=== PATIENT | female | born 1985 | race Caucasian/White ===

== ENCOUNTER → 2023-11-19 08:01 | Outpatient (REF) | payer BC, SELFPAY | LOC: WOUND 08:01 | PROVIDERS: ATTENDING PHYSICIAN Surgery; REFERRING PHYSICIAN Nurse Practitioner | DX: S61.001A Unspecified open wound of right thumb without damage to nail, initial encounter (principal); E10.9 Type 1 diabetes mellitus without complications; Z79.4 Long term (current) use of insulin; X58.XXXA Exposure to other specified factors, initial encounter | CPT/HCPCS: 11042; 99203 ==

== ENCOUNTER → 2023-11-26 09:14 | Outpatient (REF) | payer BC, SELFPAY | LOC: WOUND 09:14 | PROVIDERS: ATTENDING PHYSICIAN Surgery; REFERRING PHYSICIAN Nurse Practitioner | DX: S61.001A Unspecified open wound of right thumb without damage to nail, initial encounter (principal); E10.9 Type 1 diabetes mellitus without complications; Z79.4 Long term (current) use of insulin; X58.XXXA Exposure to other specified factors, initial encounter | CPT/HCPCS: 97597 ==

== ENCOUNTER → 2023-12-03 08:49 | Outpatient (REF) | payer BC, SELFPAY | LOC: WOUND 08:49 | PROVIDERS: ATTENDING PHYSICIAN Surgery; FAMILY PHYSICIAN Nurse Practitioner | DX: E10.9 Type 1 diabetes mellitus without complications (principal); S61.001A Unspecified open wound of right thumb without damage to nail, initial encounter; Z79.4 Long term (current) use of insulin; X58.XXXA Exposure to other specified factors, initial encounter | CPT/HCPCS: 99212 ==

== ENCOUNTER → 2024-04-08 14:51 | Outpatient (REF) | payer BC, SELFPAY | LOC: HWRAD 14:51 | PROVIDERS: ATTENDING PHYSICIAN Nurse Practitioner Obstetrics & Gynecology; FAMILY PHYSICIAN Family Medicine | DX: N92.6 Irregular menstruation, unspecified (principal); R10.2 Pelvic and perineal pain | CPT/HCPCS: 76830; 76856 ==

== ENCOUNTER 2024-05-22 07:03 | Emergency (ER) | payer BC, SELFPAY ==
[2024-05-22 07:05] VITALS: BP 154/99
--- NOTE | 2024-05-22 07:26 | ED.GENMED ---
History of Present Illness
General
Chief Complaint: Post Operative Problem(s)
Time Seen by Provider: 05/22/24 07:11
History of Present Illness
History of Present Illness:
39 yo female w/ hx of IDDM presents to the Emergency Department for evaluation of multiple complaints. She is 2d s/p L ovarian cystectomy performed at [facility]. States she awoke today with vaginal bleeding and clots, as well as scant bleeding from
the R sided laparoscopic incision. She is also concerned for subjective weakness of the RUE. No fevers or chills. Denies dysuria or urinary retention. + nausea.
Past History
Past History
ED Past Medical History: IDDM
ED Past Surgical History: None
Social History
Tobacco: Non-smoker
Alcohol: None
Drug: None
Personal:
Living: with family
Employment: Employed
Review of Systems
Review of Systems
Allergies reviewed?: Yes
All Other Systems: ROS reviewed and negative except as documented in HPI and ROS
Phy Exam
Physical Exam
Physical Exam:
GEN: Well appearing, NAD, WDWN
HEENT: Oral mucosa moist, no scleral icterus
Cardiac: Regular rate and rhythm, no murmurs
Lung: No respiratory distress, no tachypnea
Abdomen: Laparoscopic incisional sites are clean dry and intact with the exception of the right incision where there is a pinhole sized opening in the skin glue with scant bleeding, no firmness or induration. Abdomen is grossly soft and nontender.
MSK: No gross deformity or injuries
Skin: Good color, no pallor or jaundice, no rashes
Neuro: AO x3, moves all extremities freely. Bilateral upper extremity strength and sensation is intact in all seaman and symmetric
Psych: Calm, cooperative
Course
Orders/Labs/Results
Orders:
Orders
05/22/24 07:28
0.9% Sodium Chloride 1000 ml [Nss] 1,000 ml IV BOLUS
Ondansetron Injectable [Zofran] 4 mg IV NOW STA
05/22/24 07:38
Complete Blood Count/With Diff Urgent
Comprehensive Metabolic Panel Urgent
Abnormal Lab Results
05/22/24
07:38
WBC 12.6 H 10^3/uL
(4.8-10.8)
MPV 10.7 H fL
(7.4-10.4)
Absolute Neuts (auto) 8.0 H 10^3/uL
(1.4-6.5)
Absolute Lymphs (auto) 3.6 H 10^3/uL
(1.2-3.4)
Absolute Monos (auto) 0.8 H 10^3/uL
(0.1-0.6)
Chloride 109 H mmol/L
(98-107)
BUN 4 L mg/dl
(7-17)
Glucose 190 H mg/dl
(70-99)
Total Protein 6.2 L g/dl
(6.3-8.2)
05/22/24 07:38
05/22/24 07:38
Vital Signs
Initial and Last Documented VS:
Initial Vital Signs
Temp Pulse Resp BP Pulse Ox
98.4 F 99 16 154/99 99
05/22/24 07:05 05/22/24 07:05 05/22/24 07:05 05/22/24 07:05 05/22/24 07:05
Last Documented Vital Signs
Temp Pulse Resp BP Pulse Ox
98.4 F 99 16 125/74 97
05/22/24 07:05 05/22/24 07:05 05/22/24 07:05 05/22/24 09:00 05/22/24 09:15
MDM/Problems Addressed
MDM/Problems Addressed:
Bleeding from the right laparoscopic incision site is quite minor and after hemostasis glue was applied for further hemostatic purposes. Vaginal bleeding is expected in the postoperative course given uterine manipulation required during surgery.
Her left arm symptoms are more likely on the basis of surgical positioning as there is no objective neurologic deficit on exam. I discussed the case with the patient's SR. [employer]GER [employer] surgeon at [facility] who is reassured by her findings. Patient be discharged
home and recommended to follow-up as an outpatient with [employer]
*Critical Care Note
Total Time (30-74mins, 75-104mins- exclusive of procedures): Not Applicable
ED Attending Note
-
Portions of this chart may have been created with voice recognition software.� Occasional wrong word or��sound alike� substitutions may have occurred due to the inherent limitations of voice recognition software.
Discharge Plan
Departure
Patient Disposition: Home (Routine Discharge)
Date of Disposition: 05/22/24
Time of Disposition: 09:01
Patient with high blood pressure during this ER visit?: No
Discharge Problem:
Postoperative vaginal bleeding
Instructions: Bleeding After Surgery
Prescriptions:
No Action
insulin glargine [Lantus U-100 Insulin] 100 UNITS/1 ML solution
17 units SC HS
insulin aspart U-100 [Novolog FlexPen U-100 Insulin] 300 UNITS/3 ML insulin pen
0 units SC TIDPRN PRN (Reason: high blood sugar)
Patient Comments:
acetaminophen [Tylenol] 325 mg Tablet
650 mg PO Q4HPRN PRN (Reason: mild pain)
Referrals:
Pauline Silvestre CRNP [Family Provider] -
Activity Restrictions/Additional Instructions:
Call Dr Jeffries's office if any symptoms worsen
Interventions
Interventions:
*Risk Screen - Suicide Last Done: 05/22/24 07:05
*General Assessment Last Done: 05/22/24 07:05
*Neglect/Abuse Screening Last Done: 05/22/24 07:05
*Nursing Disposition Last Done: 05/22/24 09:34
ED-Skin Assessment Last Done: 05/22/24 07:23
Discharge Date and Time
Discharge Date/Time: 05/22/24 09:35
Print Language: FRENCH
[2024-05-22 07:35] VITALS: BP 119/72
[2024-05-22] MEDS: ZOFRAN 4 MG IV (07:36)
[2024-05-22] MEDS: NSS 1000 IV (07:36)
[2024-05-22 07:58] LABS: % Basophils 0.6 % (0-2); % Eosinophils 0.2 % (0-6); % Immature Granulocytes 0.3 % (0-0.5); % Lymphocytes 28.8 % (20.5-51.1); % Monocytes 6.7 % (1.7-9.3); % Neutrophils 63.4 % (42.2-75.2); Absolute Basophils 0.1 10^3/uL (0-0.2); Absolute Lymphocytes 3.6 10^3/uL (1.2-3.4); Absolute Monocytes 0.8 10^3/uL (0.1-0.6); Hematocrit 39.9 % (37.0-47.0); Hemoglobin 13.8 g/dL (12.0-16.0); Mean Corp Hgb Conc. 34.6 g/dL (33.0-37.0); Mean Corpuscular Hgb 28.6 pg (27.0-31.0); Mean Corpuscular Volume 82.8 fL (81.0-99.0); Mean Platelet Volume 10.7 fL (7.4-10.4); Nucleated Red Blood Cells % 0 %; Platelet Count 301 10^3/uL (130-400); Red Blood Cell Count 4.82 10^6/uL (4.20-5.40); Red Cell Dist. Width 13.2 % (11.5-14.5); White Blood Cell Count 12.6 10^3/uL (4.8-10.8)
[2024-05-22 08:00] VITALS: BP 118/86
[2024-05-22 08:05] LABS: ALT (SGPT) 13 U/L (0-35); AST (SGOT) 21 U/L (14-36); Albumin 3.5 g/dl (3.5-5.0); Alkaline Phosphatase 110 U/L (38-126); Blood Urea Nitrogen 4 mg/dl (7-17); Calcium 8.6 mg/dl (8.4-10.2); Carbon Dioxide 24 mmol/L (22-30); Chloride 109 mmol/L (98-107); Glucose 190 mg/dl (70-99); Potassium 3.8 mmol/L (3.5-5.1); Sodium 138 mmol/L (135-145); Total Bilirubin 0.5 mg/dl (0.2-1.3); Total Protein 6.2 g/dl (6.3-8.2); eGFR > 60.00
[2024-05-22 09:00] VITALS: BP 125/74
== END 2024-05-22 09:35 | disposition home or self-care (01) ==
LOC: EMR 07:03
PROVIDERS: Physician Assistant; EMERGENCY PHYSICIAN Emergency Medicine; FAMILY PHYSICIAN Nurse Practitioner
DX: N99.820 Postprocedural hemorrhage of a genitourinary system organ or structure following a genitourinary system procedure (principal); E11.9 Type 2 diabetes mellitus without complications
CPT/HCPCS: 99282; 96374; 96361; 80053; 85025

== ENCOUNTER 2025-09-04 09:52 | Emergency (ER) | payer SELFPAY ==
[2025-09-04 09:59] VITALS: BP 115/76
[2025-09-04 10:29] VITALS: BMI 34.9
--- NOTE | 2025-09-04 10:43 | ED.GENMED ---
History of Present Illness
General
Chief Complaint: Musculo-Skeletal Complaint
Source: patient
Exam Limitations: none
Time Seen by Provider: 09/04/25 10:27
Nursing documentation reviewed up to this point in time: agreed with
History of Present Illness
History of Present Illness:
see MDM
Past History
Past History
ED Past Medical History: IDDM
ED Past Surgical History: None
Social History
Tobacco: Non-smoker
Alcohol: None
Drug: None
Personal:
Living: with family
Employment: Employed
Review of Systems
Review of Systems
Allergies reviewed?: Yes
All Other Systems: Not applicable
Phy Exam
Physical Exam
Physical Exam:
GENERAL: Alert , in no apparent distress, comfortable at rest
HEAD: NCAT
CV: 2+ DP PULSES B/L
NEUROLOGICAL: Alert and oriented, no focal neuro deficits, , 5/5 strength, sensation intact, ambulation slight limp left leg
SKIN: Warm and dry, no bruising
MUSCULOSKELETAL: mild STS L lateral midfoot; mild tenderness
normal ankle, no pain with inversion/eversion
no distal foot tendenress
R foot nontender, normal inspection, no ankle tenderness;
ambulates with slight limp;
PSYCH: Normal and appropriate interaction.
Course
Orders/Labs/Results
Orders:
Orders
09/04/25 10:01
Foot, Left 3 View [CR Foot - Left Min 3 Views] Urgent
Comment:
Reason For Exam: injury
09/04/25 10:07
CR Foot - Right Min 3 Views Urgent
Reason For Exam: PAIN IN R FOOT
Vital Signs
Initial and Last Documented VS:
Initial Vital Signs
Temp Pulse Resp BP Pulse Ox
36.7 C 79 18 115/76 96
09/04/25 09:59 09/04/25 09:59 09/04/25 09:59 09/04/25 09:59 09/04/25 09:59
Last Documented Vital Signs
Temp Pulse Resp BP Pulse Ox
36.7 C 79 18 115/76 96
09/04/25 09:59 09/04/25 09:59 09/04/25 09:59 09/04/25 09:59 09/04/25 10:44
MDM/Problems Addressed
Differential Diagnosis Includes:
see MDM
MDM/Problems Addressed:
Note:
CHIEF COMPLAINT(S)
Foot injury from a fall.
HISTORY OF PRESENT ILLNESS
The patient is a 40-year-old female who experienced a fall this morning, approximately one hour prior to the visit, when she missed a step while reaching for something in her purse. She reports experiencing pain primarily in her foot, particularly
on the side, although her ankle is not significantly painful. She indicates a previous foot fracture but cannot recall the specifics. The patient notes significant discomfort, describing tenderness when pressure is applied to the area. She compares
this injury to a previous fracture for which she was off her foot for two weeks with a temporary cast. The patient shows a preference for treatment involving a boot and crutches for this injury.
PAST MEDICAL AND SURIGICAL HISTORY
Patient reports a history of a previous foot fracture that required immobilization.
CHRONIC MEDICAL CONDITIONS SIGNIFICANTLY AFFECTING CARE
The patient has a history of diabetes and endometriosis.
SOCIAL DETERMINANTS AFFECTING HEALTH
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
MEDICATIONS
The patient is on insulin for diabetes management and Kymberly for endometriosis.
PHYSICAL EXAM
see MDM
Nursing notes reviewed and vital signs reviewed.
PLAN
As the foot injury appears to involve a small avulsion fracture, plans include coordinating with orthopedics to determine the best management approach, likely involving a boot and crutches. Ibuprofen and acetaminophen are recommended for pain
management. As this is a work-related injury, further follow-up with Workmans Compensation is necessary.
DIFFERENTIAL DIAGNOSIS
The Differential Diagnosis includes, in no particular order and is not limited to:
1. Avulsion fracture of the foot
2. Stress fracture
3. Sprain of the foot ligaments
4. Contusion
5. Osteoarthritis exacerbation
6. Gout flare
7. Soft tissue injury
8. Ligament tear
9. Tendinitis
10. Peripheral neuropathy-related pain
40 y/o F with L foot pain after falling down 1-2 steps
left lateral midfoot pain and swelling, limping
xray indep reviewed with avulsion fx of anterior lateral calcaneus
d/w dr. sarwat kapoor
boot/crutches f/u
*Pulse Oximetry
SaO2: 96
Oxygen Mode of Delivery: Room air
Patient hypoxic: no (96)
*Critical Care Note
Total Time (30-74mins, 75-104mins- exclusive of procedures): Not Applicable
ED Attending Note
-
Portions of this chart may have been created with voice recognition software.� Occasional wrong word or��sound alike� substitutions may have occurred due to the inherent limitations of voice recognition software.
Discharge Plan
Departure
Patient Disposition: Home (Routine Discharge)
Date of Disposition: 09/04/25
Time of Disposition: 11:00
Patient with high blood pressure during this ER visit?: No
Condition: Fair
Covid-19: Not Applicable
Discharge Problem:
Avulsion fracture of calcaneus
Instructions: Heel or foot fracture
Prescriptions:
No Action
insulin glargine [Lantus U-100 Insulin] 100 UNITS/1 ML solution
17 units SC HS
insulin aspart U-100 [Novolog FlexPen U-100 Insulin] 300 UNITS/3 ML insulin pen
0 units SC TIDPRN PRN (Reason: high blood sugar)
Patient Comments:
acetaminophen [Tylenol] 325 mg Tablet
650 mg PO Q4HPRN PRN (Reason: mild pain)
Stand Alone Forms: Return to Work
Activity Restrictions/Additional Instructions:
You have a subtle fracture of your calcaneus which is your heel bone.
It is an avulsion fracture. I spoke with Dr. Nugent from orthopedics who was comfortable with using a
Cam boot and crutches for weightbearing as tolerated and follow-up in the office. You will need to go through Workmen's Comp. to be sure that they do not want you to go through another orthopedist.
Ice off-and-on, you can remove the boot at night when you sleep, ibuprofen every 8 hours etc., return for any concerns
Interventions
Interventions:
*Risk Screen - Suicide Last Done: 09/04/25 09:59
*General Assessment Last Done: 09/04/25 10:29
*Neglect/Abuse Screening Last Done: 09/04/25 10:30
*ED- Fall Risk Assessment Last Done: 09/04/25 10:29
*ED COVID-19 Vaccine History Last Done: 09/04/25 10:29
*ED Influenza Vaccine History Last Done: 09/04/25 10:29
ED-Musculoskeletal Assessment Last Done: 09/04/25 10:31
Discharge Date and Time
Print Language: SINHALA
[2025-09-04 11:34] VITALS: BP 151/91
== END 2025-09-04 11:39 | disposition home or self-care (01) ==
LOC: EMR 09:52
PROVIDERS: EMERGENCY PHYSICIAN Emergency Medicine
DX: S92.022A Displaced fracture of anterior process of left calcaneus, initial encounter for closed fracture (principal); W10.9XXA Fall (on) (from) unspecified stairs and steps, initial encounter; Y93.01 Activity, walking, marching and hiking; Y99.0 Civilian activity done for income or pay; E10.9 Type 1 diabetes mellitus without complications; N80.9 Endometriosis, unspecified; Z79.4 Long term (current) use of insulin
CPT/HCPCS: 99283; 73630